=== PATIENT | male | born 1970 | race Caucasian/White ===

== ENCOUNTER 2022-01-22 09:36 | Day surgery (SDC) | payer BC ==
--- NOTE | 2021-12-19 14:16 | HP ---
DATE: 12/25/2021 HISTORY OF PRESENT ILLNESS: Patient is a 51 y/o male who presents for screening colonoscopy. The patient had a scope about 5 years ago and had a polypectomy at that time. Complained of a little bleeding after the procedure. Pathology was okay. Otherwise, no other complaints. PAST MEDICAL HISTORY: Hypertension, hyperlipidemia. CURRENT MEDICATIONS: Gabapentin, Ambien, folic acid, lisinopril, atorvastatin, amitriptyline. ALLERGIES: NONE REPORTED. PAST SURGERIES: None reported. SOCIAL HISTORY: None reported. FAMILY HISTORY: None reported. REVIEW OF SYSTEMS: CONSTITUTIONAL: Denies fever or chills. CHEST: Denies shortness of breath. CVS: Denies chest pain. ABDOMEN: Denies abdominal pain, nausea, vomiting, diarrhea, constipation, or rectal bleeding. PHYSICAL EXAMINATION: GENERAL: No acute distress. CHEST: Nonlabored. No shortness of breath. CVS: Regular rate and rhythm. ABDOMEN: Soft, nontender. IMPRESSION: 1. SCREENING AND HISTORY OF COLON POLYPS. PLAN: Colonoscopy with Dr. Edward Mcgowan. This report was dictated for Dr. Mcgowan by Soraida Gu NP.
--- NOTE | 2022-01-16 12:03 | HP ---
DATE OF SURGERY: 01/22/2022 HISTORY OF PRESENT ILLNESS: The patient presents for colonoscopy. The patient stated that he had occasional bright red rectal bleeding at some point. The patient stated that he had a colonoscopy five years ago with a polypectomy. The patent denies other signs or symptoms at this time. PAST MEDICAL HISTORY: Diabetes, hypertension, hyperlipidemia, insomnia, neuropathy. CURRENT MEDICATIONS: Gabapentin, Ambien, folic acid, lisinopril, atorvastatin, amitriptyline. ALLERGIES: NONE REPORTED. PAST SURGERIES: Umbilical hernia repair. Knee surgery. Heart cath. SOCIAL HISTORY: None reported. FAMILY HISTORY: None reported. REVIEW OF SYSTEMS: CONSTITUTIONAL: Denies fever or chills. CHEST: Denies shortness of breath. CVS: Denies chest pain. ABDOMEN: Denies abdominal pain, nausea, vomiting, diarrhea, constipation or rectal bleeding. PHYSICAL EXAMINATION: GENERAL: No acute distress. CHEST: Nonlabored. No shortness of breath. CVS: Regular rate and rhythm. ABDOMEN: Soft, nontender. IMPRESSION: History of colon polyps, screening. PLAN: Colonoscopy with Dr. Edward Mcgowan. As dictated by Soraida Gu NP.
[2022-01-22 09:50] VITALS: O2SAT 100
[2022-01-22] MEDS ORDERED: Lactated Ringers 1,000 ML IV ONE (09:52)
[2022-01-22] MEDS ORDERED: Lactated Ringers 1,000 ML IV SCH (10:30)
[2022-01-22] MEDS ORDERED: DIPRIVAN 200 MG/20 ML IV ONE ×2 (11:17→12:11)
[2022-01-22] MEDS ORDERED: Versed 2 MG/2 ML Injection ONE (11:17)
[2022-01-22 13:22] VITALS: BP 135/71; PULSE 59
--- NOTE | 2022-01-22 14:12 | OP ---
SURGERY DATE/TIME: 01/22/2022 1200 PREOPERATIVE DIAGNOSIS: Five year follow up of polyps. POSTOPERATIVE DIAGNOSIS: Two polyps side by side 8 mm, 4 mm mid transverse colon. PROCEDURES: 1) Colonoscopy complete to cecum. 2) Hot polypectomy x2 in one container. SURGEON: Edward Mcgowan M.D. ANESTHESIA: MAC. COMPLICATIONS: None. CONDITION: Stable. INDICATION: A patient requiring colonoscopy five year follow up of polyps. DESCRIPTION OF PROCEDURE: Taken to endoscopy. Left lateral decubitus position. MAC sedation provided. Sedation level was good. Anal digital examination normal. Prostate normal. Scope introduced. Scope advanced to the cecum. Base of the cecum, ileocecal valve, appendiceal orifice normal. Ascending, hepatic and transverse 8 mm, 4 mm polyps were taken with hot biopsy forceps to extinction that were within 1 cm of each other and they were placed in one jar. The left transverse, splenic flexure, descending, sigmoid, rectum, anus satisfactory. The patient tolerated the procedure satisfactorily. Follow up five years.
== END 2022-01-22 13:15 | disposition home or self-care (01) ==
LOC: SDC 09:36
PROVIDERS: ATTEND Surgery
DX: Z09 Encounter for follow-up examination after completed treatment for conditions other than malignant neoplasm (principal); Z86.010 Personal history of colon polyps; D12.3 Benign neoplasm of transverse colon
CPT/HCPCS: 88305; J2250; J2704

== ENCOUNTER 2022-07-29 12:23 | Day surgery (SDC) | payer BC ==
[2022-07-29] MEDS ORDERED: LIDOCAINE HCL 1% 50 MG/5 ML VL PF IJ ONE (12:24)
[2022-07-29] MEDS ORDERED: DIPRIVAN 200 MG/20 ML IV ONE (14:18)
[2022-07-29] MEDS ORDERED: Lactated Ringers 1,000 ML IV ONE (14:29)
--- NOTE | 2022-07-29 17:11 | XRAY ---
Indication: Bilateral L4-S1 MBB. Intraoperative fluoroscopy provided for 18 seconds. Single digital spot image submitted for interpretation demonstrates posterior needle tips projecting over the expected left and right L4-S1 nerve roots. Correlate with intraoperative findings/report.
--- NOTE | 2022-07-29 17:20 | XRAY ---
18 seconds fluoroscopy time in surgery for bilateral L4-S1 MBB.
== END 2022-07-29 14:45 | disposition home or self-care (01) ==
LOC: SDC-PAIN 12:23
PROVIDERS: ATTEND Psychiatry & Neurology Pain Medicine
DX: M47.816 Spondylosis without myelopathy or radiculopathy, lumbar region (principal); Z79.899 Other long term (current) drug therapy
CPT/HCPCS: 64493; 64494; 72020; 77002; J2001; J2704

== ENCOUNTER 2022-10-14 07:00 | Day surgery (SDC) | payer BC ==
[2022-10-14] MEDS ORDERED: BUPIVACAINE 0.5% VIAL IJ ONE (07:01)
[2022-10-14] MEDS ORDERED: Depo-Medrol 40 MG/ML IM ONE (07:01)
[2022-10-14] MEDS ORDERED: DIPRIVAN 200 MG/20 ML IV ONE (08:35)
[2022-10-14] MEDS ORDERED: Lactated Ringers 1,000 ML IV ONE (10:49)
--- NOTE | 2022-10-14 10:58 | XRAY ---
18 seconds of fluoroscopy was used in surgery for a bilateral L4-S1 MBB.
== END 2022-10-14 09:00 | disposition home or self-care (01) ==
LOC: SDC-PAIN 07:00
PROVIDERS: ATTEND Psychiatry & Neurology Pain Medicine
DX: M47.816 Spondylosis without myelopathy or radiculopathy, lumbar region (principal); E11.9 Type 2 diabetes mellitus without complications; Z79.899 Other long term (current) drug therapy
CPT/HCPCS: 64493; 64494; 72020; 77002; 82947; J1030; J2704

== ENCOUNTER 2022-10-21 07:00 | Day surgery (SDC) | payer BC ==
[2022-10-21] MEDS ORDERED: LIDOCAINE HCL 1% 50 MG/5 ML VL PF IJ ONE (07:01)
[2022-10-21] MEDS ORDERED: BUPIVACAINE 0.5% VIAL IJ ONE (07:01)
[2022-10-21] MEDS ORDERED: DIPRIVAN 200 MG/20 ML IV ONE (08:48)
--- NOTE | 2022-10-21 09:51 | XRAY ---
Indication: Right L4-S1 RFA. Intraoperative fluoroscopy provided for 27 seconds. 3 digital spot images submitted for interpretation demonstrate posterior needle tips projecting over the expected right L4-S1 nerve roots. Correlate with intraoperative findings/report.
--- NOTE | 2022-10-21 09:56 | XRAY ---
27 seconds fluoroscopy time in surgery for right L4-S1 RFA.
[2022-10-21] MEDS ORDERED: Lactated Ringers 1,000 ML IV ONE (10:22)
== END 2022-10-21 09:14 | disposition home or self-care (01) ==
LOC: SDC-PAIN 07:00
PROVIDERS: ATTEND Psychiatry & Neurology Pain Medicine
DX: M47.816 Spondylosis without myelopathy or radiculopathy, lumbar region (principal); E11.9 Type 2 diabetes mellitus without complications; Z79.899 Other long term (current) drug therapy
CPT/HCPCS: 64635; 64636; 72100; 77002; 82947; J2001; J2704

== ENCOUNTER 2022-10-28 06:59 | Day surgery (SDC) | payer BC ==
[2022-10-28] MEDS ORDERED: BUPIVACAINE 0.5% VIAL IJ ONE (07:00)
[2022-10-28] MEDS ORDERED: Depo-Medrol 40 MG/ML IM ONE (07:00)
[2022-10-28] MEDS ORDERED: LIDOCAINE HCL 1% 50 MG/5 ML VL PF IJ ONE (07:00)
[2022-10-28] MEDS ORDERED: Xylocaine-Mpf 2% 5 Ml Vial ONE (08:23)
--- NOTE | 2022-10-28 10:30 | XRAY ---
Indication: Left L4-S1 RFA. Intraoperative fluoroscopy provided for 25 seconds. 3 digital spot image submitted for interpretation demonstrates posterior needle tips projecting over the expected left L4-S1 nerve roots. Correlate with intraoperative findings/report.
--- NOTE | 2022-10-28 10:46 | XRAY ---
25 seconds of fluoroscopy was used in surgery for a left L4-S1 RFA.
[2022-10-28] MEDS ORDERED: Lactated Ringers 1,000 ML IV ONE (12:48)
== END 2022-10-28 08:47 | disposition home or self-care (01) ==
LOC: SDC-PAIN 06:59
PROVIDERS: ATTEND Psychiatry & Neurology Pain Medicine
DX: M47.816 Spondylosis without myelopathy or radiculopathy, lumbar region (principal); E11.9 Type 2 diabetes mellitus without complications; Z79.899 Other long term (current) drug therapy
CPT/HCPCS: 64635; 64636; 72100; 77002; 82947; J1030; J2001

== ENCOUNTER 2024-05-10 07:00 | Day surgery (SDC) | payer BC ==
[2024-05-10] MEDS ORDERED: LIDOCAINE HCL 1% 50 MG/5 ML VL PF IJ ONE (07:01)
[2024-05-10] MEDS ORDERED: Decadron 4 MG INJ IV ONE (07:01)
[2024-05-10] MEDS ORDERED: Sodium Chloride 0.9(Preservative Free) 10 ML IJ ONE (07:01)
[2024-05-10] MEDS ORDERED: DIPRIVAN 200 MG/20 ML IV ONE ×2 (08:22→08:26)
[2024-05-10] MEDS ORDERED: Lactated Ringers 1,000 ML IV ONE (09:25)
--- NOTE | 2024-05-10 11:14 | XRAY ---
Indication: Right piriformis injection. Intraoperative fluoroscopy provided for 8 seconds. Single 4 digital spot image submitted for interpretation demonstrates posterior needle tip projecting over the expected right piriformis. Small amount of contrast injected for needle tip placement. Correlate with intraoperative findings/report.
--- NOTE | 2024-05-10 11:14 | XRAY ---
Indication: Right L4-S1 transforaminal ANDRE. Intraoperative fluoroscopy provided for 23 seconds. 4 digital spot image submitted for interpretation demonstrates posterior needle tips projecting over the expected right L4 and L5 nerve roots. Small amount of contrast injected for needle tip placement. Correlate with intraoperative findings/report.
--- NOTE | 2024-05-10 12:22 | XRAY ---
8 seconds of fluoroscopy was used in surgery for a right piriformis injection.
--- NOTE | 2024-05-10 12:25 | XRAY ---
23 seconds of fluoroscopy was used in surgery for a right L4-S1 transforaminal ANDRE.
== END 2024-05-10 08:50 | disposition home or self-care (01) ==
LOC: SDC-PAIN 07:00
PROVIDERS: ATTEND Psychiatry & Neurology Pain Medicine
DX: M54.16 Radiculopathy, lumbar region (principal); M79.18 Myalgia, other site; E11.9 Type 2 diabetes mellitus without complications
CPT/HCPCS: 20552; 64483; 64484; 72100; 72170; 77002; 77003; 82947; J1100; J2001; J2704; Q9966